=== PATIENT | female | born 1970 | race African-American/Black ===

== ENCOUNTER → 2016-11-28 | Outpatient (CLI) | payer BC, OTHER ==
[~2016-11-28] MED LIST: ALLERGY10 M1 PO; ESTRADIOL1 EAC2 TD; OMEPRAZOLE40 M1 PO; VITAMIN D-32000 UNIT PO
--- NOTE | ~2016-11-28 | CR97 ---
[facility] A Service of [facility] & [facility] RADIOLOGY TEXT RESULTS PATIENT: MIRACLE STACK LOCATION: [facility] : 74 UNIT #: [id number] AGE: [address]: Ozzy Hicks MD SEX: F ORDER DR: [id number] [facility] [address] [place], [place] [address] [id number] O MR#: [id number] Acc #: [id number] NAME: MIRACLE STACK. : 1970 SEX: F STUDY DATE/TIME: 11/28/2016 8:46 UNIT: [facility] ROOM: STUDY DESCRIPTION: CR Esophagram Attending Physician: Ozzy Hicks M.D. Ordering Physician: Ozzy Hicks M.D. Primary Care Physician: Saúl Beaulieu M.D. MEDICAL IMAGING REPORT This report is preliminary unless electronic signature is present EXAM Single contrast barium esophagram. INDICATION Shortness of breath and morbid obesity. The patient is to undergo laparoscopic gastric banding procedure. The patient was administered thin barium and multiple fluoroscopic images were obtained. FINDINGS The thoracic esophagus is normal in caliber. Without evidence of stricture or mass lesion. Esophageal motility is within normal limits. No reflux or hiatal hernia is seen. A total of 14 fluoroscopic images were obtained. Total fluoroscopy time was 0.5 minutes. IMPRESSION Normal single contrast barium esophagram. Dictated by... Junie Olmedo M.D. THIS IS AN ELECTRONICALLY VERIFIED REPORT Junie Olmedo M.D. at 12/01/2016 4:48 PM AFF/cmailin TD: 12/01/2016 08:20 JOB #: [id number] MEDICAL IMAGING REPORT Page 1 of 1 COPY
--- NOTE | ~2016-11-28 | EKG ---
PATIENT: MIRACLE STACK UNIT #: [id number] Ventricular Rate: 49 BPM Atrial Rate: 49 BPM P-R Interval: 160 ms QRS Duration: 86 ms Q-T Interval: 436 ms QTC Calculation(Bezet): 393 ms P [place]: 60 degrees Calculated R [place]: 15 degrees Calculated T [place]: 12 degrees Diagnosis Line: Marked sinus bradycardia Diagnosis Line: Possible Inferior infarct , age undetermined Diagnosis Line: Cannot rule out Anterior infarct , age Diagnosis Line: undetermined Diagnosis Line: Abnormal ECG Diagnosis Line: No previous ECGs available Diagnosis Line: Confirmed by JOHN FORRESTER MD ([id number]) on Diagnosis Line: 11/29/2016 4:25:04 PM INTERPRETING MD: USAMA HARRISON
--- NOTE | ~2016-11-28 | CR63 ---
[facility] A Service of [facility] & [facility] RADIOLOGY TEXT RESULTS PATIENT: MIRACLE STACK LOCATION: [facility] : 74 UNIT #: [id number] AGE: [address]: Ozzy Hicks MD SEX: F ORDER DR: [id number] [facility] [address] [place], [place] [address] [id number] O MR#: [id number] Acc #: [id number] NAME: MIRACLE STACK. : 1970 SEX: F STUDY DATE/TIME: 11/28/2016 7:35 UNIT: [facility] ROOM: STUDY DESCRIPTION: CR Chest 2 View Attending Physician: Ozzy Hicks M.D. Ordering Physician: Ozzy Hicks M.D. Primary Care Physician: Saúl Beaulieu M.D. MEDICAL IMAGING REPORT This report is preliminary unless electronic signature is present EXAM PA and lateral chest Date: 11/28/2016 HISTORY 46-year-old female undergoing preop evaluation for gastric band placement. Morbid obesity. Shortness of breath. Symptoms today. COMPARISON None. FINDINGS There is mild asymmetric elevation right hemidiaphragm. Heart size is upper limits normal. No pleural effusion. No pneumothorax. Pulmonary vascular distribution within normal limits. IMPRESSION No acute cardiopulmonary findings. Dictated by... Mehnaz Gómez M.D. THIS IS AN ELECTRONICALLY VERIFIED REPORT Mehnaz Gómez M.D. at 12/01/2016 8:31 AM ROBERT/jaja TD: 11/28/2016 08:55 JOB #: [id number] MEDICAL IMAGING REPORT Page 1 of 1 COPY
[2016-11-28 09:31] LABS: HEMATOCRIT 38.6 % (35.0-45.0); HEMOGLOBIN 12.4 gm/dL (12.0-16.0); MEAN CELL VOLUME 85.4 FL (83-96); MEAN CORPUSCULAR HEMOGLOBIN 27.4 PG (28-34); MEAN CORPUSCULAR HGB CONC 32.1 g/dL (30-36); RED BLOOD COUNT 4.52 X10e (3.90-5.30); RED CELL DISTRIBUTION WIDTH 14.7 % (11.0-15.5); WHITE BLOOD COUNT 8.7 X10e3 (4.0-10.5)
[2016-11-28 10:26] LABS: ALBUMIN SERUM 3.9 g/dL (3.5-5.0); BILIRUBIN,TOTAL 0.8 mg/dL (0.2-2.0); BUN/CREATININE RATIO 14.28; CALCIUM SERUM 9.4 mg/dL (8.4-10.2); CREATININE SERUM 0.7 mg/dL (0.6-1.4); GLOM FILT RATE Estimated 122.1 mL/min (>60); POTASSIUM 3.9 mmol/L (3.5-5.1); PROTEIN TOTAL SERUM 7.8 g/dL (6.0-8.3)
== END | disposition home or self-care (01) ==
LOC: CRAD 07:18 → CAMB 09:30
PROVIDERS: Surgery
DX: Z01.818 Encounter for other preprocedural examination (principal); E66.01 Morbid (severe) obesity due to excess calories
CPT/HCPCS: 36415; 71020; 74220; 80053; 80061; 84443; 85027; 93005

== ENCOUNTER → 2016-12-10 | Day surgery (SDC) | payer BC, OTHER ==
--- NOTE | ~2016-12-10 | OR ---
Unit #: [id number] #: [id number] Patient: MIRACLE STACK [id number] [address] [address] [id number] O MR#: [id number] NAME: MIRACLE STACK ROOM: Date of Procedure: 12/10/2016 Admission Date: 12/10/2016 Surgeon: Ozzy Hicks M.D. : 1970 Attending Physician: Ozzy Hicks M.D. Primary Care Physician: Saúl Beaulieu M.D. OPERATIVE REPORT PREOPERATIVE DIAGNOSIS Chronic morbid obesity, body mass index of 35. POSTOPERATIVE DIAGNOSES 1. Chronic morbid obesity, body mass index of 35. 2. Paraesophageal hiatal hernia. PROCEDURES PERFORMED 1. Laparoscopic adjustable gastric band. 2. Laparoscopic paraesophageal hiatal hernia repair. [employer]. ANESTHESIA General endotracheal anesthesia. ESTIMATED BLOOD LOSS Minimal. IV FLUIDS 800 crystalloid. COMPLICATIONS None. INDICATIONS FOR PROCEDURE The patient is a 46-year-old with chronic morbid obesity. DESCRIPTION OF PROCEDURE The patient was taken to the operating room and placed in supine position. General anesthesia was induced. The abdomen was prepped and draped. A 3-cm incision was then made left of the midline. A 10-mm Visiport was then placed intraabdominal under direct vision. The abdomen was insufflated to 15 mmHg with CO2. The patient was then placed in a steep reversed Trendelenburg. General inspection of the abdomen revealed what appeared to be a paraesophageal hernia. This was identified with a defect at the diaphragm using anterior palpation with the instrument. We then made a small incision in the subxiphoid region. A Francisco liver retractor was then placed intraabdominal and used to retract the left lobe of the liver upward to further expose the paraesophageal hernia and GE junction. I then placed a 5-mm port in the right upper quadrant, a 10-mm Unit #: [id number] #: [id number] Patient: MIRACLE STACK port in the left upper quadrant, and another 5-mm port in the left lower quadrant. The stomach was retracted medial and downward. Upon retracting the stomach, we took down the paraesophageal ligament, exposing the right and left margaret at the paraesophageal hernia. Any hernia sac was reduced. We then repaired the paraesophageal hernia using interrupted #0 Ethibond sutures in a [id number] type fashion. This formed a snug repair to the anterior esophagus. We then retracted the stomach medially and further exposed the angle of His using Bovie electrocautery. The stomach was then retracted laterally. We then took down the hepatogastric ligament with Bovie electrocautery. This exposed the right margaret. Using blunt dissection, I created a retrogastric tunnel from this point to the angle of His. The band was then placed intraabdominal through the 10-mm port site. This was then brought through the retrogastric tunnel in a pars flaccida technique. The band was then closed anteriorly to form a 20-mL to 25-mL anterior gastric pouch. The fundus was then secured to the anterior pouch to prevent movement around the stomach using two interrupted #0 Ethibond sutures. A third suture was then used as a gathering stitch from the lesser curve to the anterior stomach, gathering and imbricating the remaining fundus of the stomach. The tubing was then brought out through the midline 10-mm port site. All ports and the Francisco liver retractor were removed under direct vision with no evidence of abdominal hemorrhage. A polypropylene mesh was then secured to the posterior face of the laparoscopic band port. This was secured using #0 Ethibond suture. This was then cut to shape. The port was then connected to the tubing and placed into a subcutaneous pocket just anterior to the rectus sheath. Its position was then confirmed. All tubing was then placed intraabdominal. The wounds were then closed with interrupted 4-0 Vicryl. The patient tolerated the procedure well and was sent to the recovery room in good condition. Dictated by... Eddie Hernandez/malik TD: 12/10/2016 17:43 JOB #: [id number] OPERATIVE REPORT Page 1 of 1 X Ozzy Hicks MD PROCEDURE OPERATIVE NOTE
--- NOTE | ~2016-12-10 | CR7 ---
[facility] A Service of [facility] & [facility] RADIOLOGY TEXT RESULTS PATIENT: MIRACLE STACK LOCATION: [facility] : 74 UNIT #: [id number] AGE: [address]: Ozzy Hicks MD SEX: F ORDER DR: [id number] [facility] [address] [place], [place] [address] [id number] O MR#: [id number] Acc #: [id number] NAME: MIRACLE STACK. : 1970 SEX: F STUDY DATE/TIME: 12/10/2016 10:57 UNIT: [facility] ROOM: STUDY DESCRIPTION: CR Abdomen Single AP View Attending Physician: Ozzy Hicks M.D. Ordering Physician: Ozzy Hicks M.D. Primary Care Physician: Saúl Beaulieu M.D. MEDICAL IMAGING REPORT This report is preliminary unless electronic signature is present EXAM KUB 12/10 INDICATIONS Gastric band placement today. FINDINGS Supine view of the abdomen was obtained. Gastric band is present with phi angle of 74 degrees. Port is in the midline of the lower abdomen. Bowel gas pattern is normal. IMPRESSION Gastric band in place with a phi angle of 74 degrees. Dictated by... Sushil Pablo Jr., M.D. THIS IS AN ELECTRONICALLY VERIFIED REPORT Sushil Pablo Jr., M.D. at 12/10/2016 4:24 PM SHALA/alexey TD: 12/10/2016 14:58 JOB #: [id number] MEDICAL IMAGING REPORT Page 1 of 1 COPY
== END | disposition home or self-care (01) ==
LOC: CSUR 06:47
DX: E66.01 Morbid (severe) obesity due to excess calories (principal); K44.9 Diaphragmatic hernia without obstruction or gangrene; E11.9 Type 2 diabetes mellitus without complications; K21.9 Gastro-esophageal reflux disease without esophagitis; G47.30 Sleep apnea, unspecified; Z68.35 Body mass index [BMI] 35.0-35.9, adult; Z72.4 Inappropriate diet and eating habits; Z88.6 Allergy status to analgesic agent; Z91.040 Latex allergy status; Z79.899 Other long term (current) drug therapy; Z98.51 Tubal ligation status; Z90.710 Acquired absence of both cervix and uterus; Z90.721 Acquired absence of ovaries, unilateral; Z98.890 Other specified postprocedural states
CPT/HCPCS: 74000; 82947; C1781; J0330; J0690; J1650; J1885; J2250; J2405; J2710; J3010